=== PATIENT | male | born 1975 | race Caucasian/White ===

== ENCOUNTER 2019-10-07 09:29 | Observation (INO) ==
[2019-10-07] MEDS ORDERED: ADENOCARD IVP STA ×2 (10:11)
--- NOTE | 2019-10-07 10:12 | ED.PDOC ---
General ED Provider: Dr. KHURRAM DEGROOT Chief Complaint: Nausea/Vomiting Stated Complaint: Awakened with feeling ill and nauseated. Has happened before but never has been evaluated during an event. Time Seen by Physician: 09:50 Mode of Arrival: Walk-In Information Source: Patient Exam Limitations: No limitations Nursing and Triage Documentation Reviewed and Agree: Yes Does patient meet sepsis criteria?: No System Inflammatory Response Syndrome: Not Applicable Sepsis Protocol: For patient's 13 years and over: Temp is 96.8 and below OR 101 and greater Pulse >90 BPM Resp >20/minute Acutely Altered Mental Status Are patient's symptoms suggestive of a new infection, such as: -Pneumonia -Skin, Soft Tissue -Endocarditis -UTI -Bone, Joint Infection -Implantable Device -Acute Abdominal Infection -Wound Infection -Meningitis -Blood Stream Catheter Infection -Unknown Cardiovascular Complaint Exam Palpitations Complaint/Exam Onset/Duration: This AM Symptoms Are: Still present Timing: Constant Initial Severity: Moderate Current Severity: Mild Character: Reports Pounding (initially) Alleviating: Reports None Associated Signs and Symptoms: Reports Lightheadedness, Dizziness, Chest pain, Shortness of breath and Nausea Related History: Similar episode Related Surgical History: Reports None Cardiac Risk Factors: Reports None Pulmonary Embolism Risk Factors: Reports None Atrial Fibrillation Risk Factors: Reports None Thyroid Exam: Normal Differential Diagnoses: AV Block, Mitral Valve Prolapse, CAD and Paroxysmal SVT Quality Indicators for AMI: EKG in 10min. Review of Systems Review Of Systems Constitutional: Reports No symptoms Eyes: Reports No symptoms Ears, Nose, Mouth, Throat: Reports No symptoms Respiratory: Reports No symptoms Cardiac: Reports No symptoms GI: Reports No symptoms : Reports No symptoms Musculoskeletal: Reports No symptoms Skin: Reports No symptoms Neurological: Reports No symptoms Endocrine: Reports No symptoms Hematologic/Lymphatic: Reports No symptoms All Other Systems: Reviewed and Negative [facility] Medical History (Updated 10/07/19 @ 16:13 by MELISSA GOODSON RN) Temporary low platelet count Family History (Updated 10/07/19 @ 16:13 by MELISSA GOODSON RN) FATHER Diabetes Mother Hypertension FATHER Prostate CA Social History Smoking and tobacco status: Current every day smoker Substance use type: marijuana Physical Exam Physical Exam Appearance: Reports Ill-appearing and Obese Ill-appearing: Mild Pain Distress: None Eyes: Reports NATANAEL, EOMI and Conjunctiva clear ENT: Reports Ears normal, Nose normal and Oropharynx normal Neck: Supple (No JVD) Respiratory: Reports Airway patent, Breath sounds clear, Breath sounds equal and Respirations nonlabored Cardiovascular: Reports RRR, Pulses normal, No rub and No murmur GI/: Reports Soft, Nontender, No masses, Bowel sounds normal and No Organomegaly Musculoskeletal: Reports Normal strength, ROM intact, No edema and No calf tenderness Skin: Reports Warm, Dry and Normal color Neurological: Reports Sensation intact, Motor intact, Reflexes intact, Cranial nerves intact, Alert and Oriented Psychiatric: Reports Affect appropriate and Mood appropriate Interpretation Radiology Interpretation Exam Interpreted: Portable CXR (Mild enlargement of the cardiac silhouette with increased pulmonary vascularity. Question minimal interstitial edema.) EKG Interpretation Time of EKG #1: 09:50 Rate: Tachy Rhythm: Sinus Ectopy: None ST Segment: Normal Interpretation: SVT Time of EKG #2: 10:15 Rate: Normal Rhythm: Sinus Ectopy: None Sabin: Left ST Segment: Normal EKG Interpretation: NSR Physician Notification Case Discussed Physician Notified: Dr Roblero-consult Time of Notification: 15:00 Critical Care Note Critical Care Note Total Time (mins): 60 Course Course Hematology/Chemistry: 10/07/19 09:55 10/07/19 09:55 Orders, Labs, Meds: Lab Review 10/07/19 10/07/19 10/07/19 09:55 09:55 09:55 WBC 6.86 RBC 5.50 Hgb 16.1 Hct 48.1 MCV 87.5 MCH 29.3 MCHC 33.5 RDW Coeff of Adrian 14.6 Plt Count 44 L Immature Gran % (Auto) 0.4 Neut % (Auto) 76.6 H Lymph % (Auto) 14.0 [place] % (Auto) 7.6 Eos % (Auto) 1.0 Baso % (Auto) 0.4 Neut # (Auto) 5.3 Lymph # (Auto) 1.0 [place] # (Auto) 0.5 Eos # (Auto) 0.1 Baso # (Auto) 0.0 Immature Gran # (Auto) 0.0 PT INR APTT Sodium 139.8 Potassium 2.95 L Chloride 100.3 Carbon Dioxide 29.8 Anion Gap 12.65 BUN 16.5 Creatinine 1.57 H Estimated GFR (MDRD) 48.00 BUN/Creatinine Ratio 10.50 Glucose 109.0 H Calcium 10.29 H Total Bilirubin 0.68 AST 33.0 ALT 21.3 Alkaline Phosphatase 79.0 Total Creatine Kinase 208.7 H CK-MB (CK-2) 3.030 H CK-MB (CK-2) % 1.4500 Troponin I 0.069 Total Protein 7.52 Albumin 4.45 Globulin 3.07 Albumin/Globulin Ratio 1.44 Triglycerides Cholesterol LDL Cholesterol, Calc VLDL Cholesterol HDL Cholesterol Cholesterol/HDL Ratio TSH Free T4 D-Dimer 308.84 Urine Opiates Screen Ur Oxycodone Screen Urine Methadone Screen Ur Propoxyphene Screen Ur Barbiturates Screen U Tricyclic Antidepress Ur Phencyclidine Scrn Ur Amphetamine Screen U Methamphetamines Scrn U Benzodiazepines Scrn Urine Cocaine Screen U Cannabinoids Screen 10/07/19 10/07/19 10/07/19 09:55 09:55 09:55 WBC RBC Hgb Hct MCV MCH MCHC RDW Coeff of Adrian Plt Count Immature Gran % (Auto) Neut % (Auto) Lymph % (Auto) [place] % (Auto) Eos % (Auto) Baso % (Auto) Neut # (Auto) Lymph # (Auto) [place] # (Auto) Eos # (Auto) Baso # (Auto) Immature Gran # (Auto) PT 9.5 INR 0.97 APTT 27.7 Sodium Potassium Chloride Carbon Dioxide Anion Gap BUN Creatinine Estimated GFR (MDRD) BUN/Creatinine Ratio Glucose Calcium Total Bilirubin AST ALT Alkaline Phosphatase Total Creatine Kinase CK-MB (CK-2) CK-MB (CK-2) % Troponin I Total Protein Albumin Globulin Albumin/Globulin Ratio Triglycerides 191.1 H Cholesterol 196.9 LDL Cholesterol, Calc 123 VLDL Cholesterol 38 H HDL Cholesterol 35.2 Cholesterol/HDL Ratio 5.6 TSH 3.260 Free T4 1.11 D-Dimer Urine Opiates Screen Ur Oxycodone Screen Urine Methadone Screen Ur Propoxyphene Screen Ur Barbiturates Screen U Tricyclic Antidepress Ur Phencyclidine Scrn Ur Amphetamine Screen U Methamphetamines Scrn U Benzodiazepines Scrn Urine Cocaine Screen U Cannabinoids Screen 10/07/19 10:50 WBC RBC Hgb Hct MCV MCH MCHC RDW Coeff of Adrian Plt Count Immature Gran % (Auto) Neut % (Auto) Lymph % (Auto) [place] % (Auto) Eos % (Auto) Baso % (Auto) Neut # (Auto) Lymph # (Auto) [place] # (Auto) Eos # (Auto) Baso # (Auto) Immature Gran # (Auto) PT INR APTT Sodium Potassium Chloride Carbon Dioxide Anion Gap BUN Creatinine Estimated GFR (MDRD) BUN/Creatinine Ratio Glucose Calcium Total Bilirubin AST ALT Alkaline Phosphatase Total Creatine Kinase CK-MB (CK-2) CK-MB (CK-2) % Troponin I Total Protein Albumin Globulin Albumin/Globulin Ratio Triglycerides Cholesterol LDL Cholesterol, Calc VLDL Cholesterol HDL Cholesterol Cholesterol/HDL Ratio TSH Free T4 D-Dimer Urine Opiates Screen Negative Ur Oxycodone Screen Negative Urine Methadone Screen Negative Ur Propoxyphene Screen Negative Ur Barbiturates Screen Negative U Tricyclic Antidepress Negative Ur Phencyclidine Scrn Negative Ur Amphetamine Screen Negative U Methamphetamines Scrn Negative U Benzodiazepines Scrn Negative Urine Cocaine Screen Negative U Cannabinoids Screen Negative Orders Category Date Time Status EKG-(ED ONLY) Stat CARDIO 10/07/19 10:17 Completed EKG-(ED ONLY) Stat CARDIO 10/07/19 13:33 Completed CBC W/ AUTO DIFF Stat LAB 10/07/19 09:55 Completed CMP [COMPREHENSIVE METABOLIC PANEL] Stat LAB 10/07/19 09:55 Completed CPK [CREATINE KINASE] Stat LAB 10/07/19 09:55 Completed D-DIMER Stat LAB 10/07/19 09:55 Completed PARTIAL THROMBOPLASTIN TIME Stat LAB 10/07/19 09:55 Completed PT WITH INR Stat LAB 10/07/19 09:55 Completed TROPONIN I Stat LAB 10/07/19 09:55 Completed URINE DRUG SCREEN (RAPID FOR ED) [DRUG SCREEN, URINE, LAB 10/07/19 10:50 Comp leted RAPID] Stat Adenosine [Adenocard] MEDS 10/07/19 10:11 Discontinued 12 mg IVP ONCE STA Adenosine [Adenocard] MEDS 10/07/19 10:11 Discontinued 6 mg IVP ONCE STA Carvedilol [Coreg] MEDS 10/07/19 17:00 Discontinued 3.125 mg PO BIDWM Carvedilol [Coreg] MEDS 10/07/19 13:34 Discontinued 3.125 mg PO NOW ONE Diltiazem HCl [Cardizem] MEDS 10/07/19 15:30 Active 90 mg PO BID Lisinopril/Hydrochlorothiazide [Zestoretic 20-12.5 mg MEDS 10/07/19 14:53 Discontinued Tab] 1 tab PO ONCE STA Potassium Chloride [K-Dur] MEDS 10/07/19 12:12 Discontinued 20 meq PO ONCE STA Potassium Chloride [Potassium Chloride 20 Meq/100 ml MEDS 10/07/19 12:11 Discontinued Premix] 20 meq in 100 ml IV ONCE CHEST, 1V AP ONLY Stat RADS 10/07/19 10:18 Completed Medications Generic Name Dose Route Start Last Admin Trade Name Estrellita PRN Reason Stop Dose Admin Acetaminophen 650 mg 10/07/19 15:19 Tylenol PO Q4H PRN Analgesia Alprazolam 0.5 mg 10/07/19 21:00 Xanax PO BEDTIME CALLY Diltiazem HCl 90 mg 10/07/19 15:30 10/07/19 15:41 Cardizem PO 90 mg BID CALLY Administration Enoxaparin Sodium 40 mg 10/08/19 09:00 Lovenox SUBCUT DAILY CALLY Hydrochlorothiazide 50 mg 10/08/19 09:00 Hydrochlorothiazide PO DAILY CALLY Sodium Chloride 1,000 mls @ 83 mls/hr 10/07/19 16:30 10/07/19 16:30 Sodium Chloride IV 83 mls/hr .Q12H3M CALLY Administration Lisinopril 40 mg 10/08/19 09:00 Zestril PO DAILY CALLY Nicotine 1 patch 10/07/19 16:30 10/07/19 17:09 Nicoderm 14 Mg TD 1 patch DAILY CALLY Administration Ondansetron HCl 4 mg 10/07/19 15:19 Zofran 4 Mg/2 Ml IVP Q6H PRN Nausea / Vomiting Potassium Chloride 20 meq 10/07/19 16:30 10/07/19 17:09 K-Dur PO 10/07/19 22:30 20 meq Q2H CALLY Administration Potassium Chloride 20 meq 10/08/19 08:00 K-Dur PO TIDWM CALLY Discontinued Medications Generic Name Dose Route Start Last Admin Trade Name Estrellita PRN Reason Stop Dose Admin Adenosine 6 mg 10/07/19 10:11 10/07/19 09:47 Adenocard IVP 10/07/19 10:12 6 mg ONCE STA Administration Adenosine 12 mg 10/07/19 10:11 10/07/19 09:50 Adenocard IVP 10/07/19 10:12 12 mg ONCE STA Administration Carvedilol 3.125 mg 10/07/19 17:00 Coreg PO BIDWM CALLY Carvedilol 3.125 mg 10/07/19 13:34 10/07/19 14:05 Coreg PO 10/07/19 13:35 3.125 mg NOW ONE Administration Lisinopril/HCTZ 1 tab 10/07/19 14:53 10/07/19 15:05 Zestoretic 20-12.5 Mg Tab PO 10/07/19 14:54 1 tab ONCE STA Administration Potassium Chloride 20 meq in 100 mls @ 50 mls/hr 10/07/19 12:11 10/07/19 12:43 Potassium Chloride 20 Meq/100 Ml Premix IV 10/07/19 14:10 50 mls/hr ONCE STA Administration Potassium Chloride 20 meq 10/07/19 12:12 10/07/19 12:40 K-Dur PO 10/07/19 12:13 20 meq ONCE STA Administration Vital Signs: Temp Pulse Resp BP Pulse Ox 10/07/19 10:36 90 16 126/84 10/07/19 09:31 97.6 F 188 H 26 H 111/76 97 KERVIN Risk Score KERVIN Risk Score: Risk Score Odds of by 30D 0 0.1 (0.1-0.2) 1 0.3 (0.2-0.3) 2 0.4 (0.3-0.5) 3 0.7 (0.6-0.9) 4 1.2 (1.0-1.5) 5 2.2 (1.9-2.6) 6 3.0 (2.5-3.6) 7 4.8 (3.8-6.1) Discharge Plan Discharge Patient Disposition: PLACED OBSERVATION Discharge Problem: Paroxysmal supraventricular tachycardia, Hypertension, Nausea, Vomiting ED Provider: KHURRAM DEGROOT Condition: Good Discharge Date/Time: 10/07/19 15:33 Additional Information: Spoke with Dr Roblero who completed Echo Revealed LVH. good ejection fraction
[2019-10-07 10:41] LABS: HEMATOCRIT 48.1 % (42.0-52.0)
--- NOTE | 2019-10-07 10:41 | DI ---
EXAM: Chest, single view COMPARISON: None available. HISTORY: Tachycardia. FINDINGS: Single underpenetrated semi upright chest radiograph with lordotic positioning with overal l limited anatomic detail. Mild enlargement cardiac silhouette with increased pulmonary vascularity. Prominence of the interstitium and minimal interstitial edema is not excluded. No focal airspace c onsolidation, pleural effusion or pneumothorax. IMPRESSION: 1. Technically limited radiograph as described. Further assessment with PA and lateral views of the chest should be considered. 2. Mild enlargement of the cardiac silhouette with increased pulmonary vascularity. Question minima l interstitial edema.
[2019-10-07] MEDS ORDERED: POTASSIUM CHLORIDE 20 MEQ/100 ML PREMIX 20 MEQ/100 ML BAG IV STA (12:11)
[2019-10-07] MEDS ORDERED: K-DUR PO STA (12:12)
[2019-10-07] MEDS ORDERED: COREG PO ONE (13:34)
[2019-10-07] MEDS ORDERED: ZESTORETIC 20-12.5 MG TAB PO STA (14:53)
[2019-10-07] MEDS ORDERED: ZOFRAN 4 MG/2 ML IVP PRN (15:19)
[2019-10-07] MEDS ORDERED: TYLENOL PO PRN (15:19)
[2019-10-07] MEDS: CARDIZEM PO SCH ×2 (15:41→19:59)
[2019-10-07 16:08] VITALS: BMI 47.4
[2019-10-07] MEDS: SODIUM CHLORIDE 1,000 ML IV SCH (16:30)
[2019-10-07] MEDS ORDERED: COREG PO SCH (17:00)
[2019-10-07] MEDS: K-DUR PO SCH ×4 (17:09→23:16)
[2019-10-07] MEDS: NICODERM 14 MG TD SCH (17:09)
--- NOTE | 2019-10-07 19:34 | PCM ---
Allergies Allergies Allergy/AdvReac Type Severity Reaction Status Date / Time No Known Allergies Allergy Unverified 10/07/19 09:47 PFSH Medical History Temporary low platelet count Family History (Updated 10/07/19 @ 16:13 by MELISSA GOODSON RN) FATHER Diabetes Mother Hypertension FATHER Prostate CA Social History Smoking and tobacco status: Current every day smoker Substance use type: marijuana Medications Medications: Medications Generic Name Dose Route Start Last Admin Trade Name Freq PRN Reason Stop Dose Admin Acetaminophen 650 mg 10/07/19 15:19 Tylenol PO Q4H PRN Analgesia Alprazolam 0.5 mg 10/07/19 21:00 Xanax PO BEDTIME CALLY Diltiazem HCl 90 mg 10/07/19 15:30 10/07/19 15:41 Cardizem PO 90 mg BID CALLY Administration Enoxaparin Sodium 40 mg 10/08/19 09:00 Lovenox SUBCUT DAILY CALLY Hydrochlorothiazide 50 mg 10/08/19 09:00 Hydrochlorothiazide PO DAILY CALLY Sodium Chloride 1,000 mls @ 83 mls/hr 10/07/19 16:30 10/07/19 16:30 Sodium Chloride IV 83 mls/hr .Q12H3M CALLY Administration Lisinopril 40 mg 10/08/19 09:00 Zestril PO DAILY CALLY Nicotine 1 patch 10/07/19 16:30 10/07/19 17:09 Nicoderm 14 Mg TD 1 patch DAILY CALLY Administration Ondansetron HCl 4 mg 10/07/19 15:19 Zofran 4 Mg/2 Ml IVP Q6H PRN Nausea / Vomiting Potassium Chloride 20 meq 10/07/19 16:30 10/07/19 18:57 K-Dur PO 10/07/19 22:30 20 meq Q2H CALLY Administration Potassium Chloride 20 meq 10/08/19 08:00 K-Dur PO TIDWM CALLY Body Composition Height: 5 ft 5 in Weight: 285 lb Body Mass Index (BMI): 47.4 Vital Signs Temperature: 98.1 F Pulse Rate: 68 Respiratory Rate: 16 Blood Pressure: 122/72 O2 Sat by Pulse Oximetry: 96 Lab/Tests/Diagnostic Imaging Lab/Tests/Diagnostic Imaging: Lab Review 10/07/19 10/07/19 10/07/19 09:55 09:55 09:55 WBC 6.86 RBC 5.50 Hgb 16.1 Hct 48.1 MCV 87.5 MCH 29.3 MCHC 33.5 RDW Coeff of Adrian 14.6 Plt Count 44 L Immature Gran % (Auto) 0.4 Neut % (Auto) 76.6 H Lymph % (Auto) 14.0 [place] % (Auto) 7.6 Eos % (Auto) 1.0 Baso % (Auto) 0.4 Neut # (Auto) 5.3 Lymph # (Auto) 1.0 [place] # (Auto) 0.5 Eos # (Auto) 0.1 Baso # (Auto) 0.0 Immature Gran # (Auto) 0.0 PT INR APTT Sodium 139.8 Potassium 2.95 L Chloride 100.3 Carbon Dioxide 29.8 Anion Gap 12.65 BUN 16.5 Creatinine 1.57 H Estimated GFR (MDRD) 48.00 BUN/Creatinine Ratio 10.50 Glucose 109.0 H Calcium 10.29 H Total Bilirubin 0.68 AST 33.0 ALT 21.3 Alkaline Phosphatase 79.0 Total Creatine Kinase 208.7 H CK-MB (CK-2) 3.030 H CK-MB (CK-2) % 1.4500 Troponin I 0.069 Total Protein 7.52 Albumin 4.45 Globulin 3.07 Albumin/Globulin Ratio 1.44 Triglycerides Cholesterol LDL Cholesterol, Calc VLDL Cholesterol HDL Cholesterol Cholesterol/HDL Ratio TSH Free T4 D-Dimer 308.84 Urine Opiates Screen Ur Oxycodone Screen Urine Methadone Screen Ur Propoxyphene Screen Ur Barbiturates Screen U Tricyclic Antidepress Ur Phencyclidine Scrn Ur Amphetamine Screen U Methamphetamines Scrn U Benzodiazepines Scrn Urine Cocaine Screen U Cannabinoids Screen 10/07/19 10/07/19 10/07/19 09:55 09:55 09:55 WBC RBC Hgb Hct MCV MCH MCHC RDW Coeff of Adrian Plt Count Immature Gran % (Auto) Neut % (Auto) Lymph % (Auto) [place] % (Auto) Eos % (Auto) Baso % (Auto) Neut # (Auto) Lymph # (Auto) [place] # (Auto) Eos # (Auto) Baso # (Auto) Immature Gran # (Auto) PT 9.5 INR 0.97 APTT 27.7 Sodium Potassium Chloride Carbon Dioxide Anion Gap BUN Creatinine Estimated GFR (MDRD) BUN/Creatinine Ratio Glucose Calcium Total Bilirubin AST ALT Alkaline Phosphatase Total Creatine Kinase CK-MB (CK-2) CK-MB (CK-2) % Troponin I Total Protein Albumin Globulin Albumin/Globulin Ratio Triglycerides 191.1 H Cholesterol 196.9 LDL Cholesterol, Calc 123 VLDL Cholesterol 38 H HDL Cholesterol 35.2 Cholesterol/HDL Ratio 5.6 TSH 3.260 Free T4 1.11 D-Dimer Urine Opiates Screen Ur Oxycodone Screen Urine Methadone Screen Ur Propoxyphene Screen Ur Barbiturates Screen U Tricyclic Antidepress Ur Phencyclidine Scrn Ur Amphetamine Screen U Methamphetamines Scrn U Benzodiazepines Scrn Urine Cocaine Screen U Cannabinoids Screen 10/07/19 10:50 WBC RBC Hgb Hct MCV MCH MCHC RDW Coeff of Adrian Plt Count Immature Gran % (Auto) Neut % (Auto) Lymph % (Auto) [place] % (Auto) Eos % (Auto) Baso % (Auto) Neut # (Auto) Lymph # (Auto) [place] # (Auto) Eos # (Auto) Baso # (Auto) Immature Gran # (Auto) PT INR APTT Sodium Potassium Chloride Carbon Dioxide Anion Gap BUN Creatinine Estimated GFR (MDRD) BUN/Creatinine Ratio Glucose Calcium Total Bilirubin AST ALT Alkaline Phosphatase Total Creatine Kinase CK-MB (CK-2) CK-MB (CK-2) % Troponin I Total Protein Albumin Globulin Albumin/Globulin Ratio Triglycerides Cholesterol LDL Cholesterol, Calc VLDL Cholesterol HDL Cholesterol Cholesterol/HDL Ratio TSH Free T4 D-Dimer Urine Opiates Screen Negative Ur Oxycodone Screen Negative Urine Methadone Screen Negative Ur Propoxyphene Screen Negative Ur Barbiturates Screen Negative U Tricyclic Antidepress Negative Ur Phencyclidine Scrn Negative Ur Amphetamine Screen Negative U Methamphetamines Scrn Negative U Benzodiazepines Scrn Negative Urine Cocaine Screen Negative U Cannabinoids Screen Negative Orders Category Date Time Status PLACE PATIENT OBSERVATION .TO MEDSURG (MONITORED BED ADMISSION 10/07/19 15:31 Active ) ECHOCARDIOGRAM 2D-M MODE Routine CARDIO 10/07/19 16:06 Completed EKG-(ED ONLY) Stat CARDIO 10/07/19 10:17 Completed EKG-(ED ONLY) Stat CARDIO 10/07/19 13:33 Completed ACTIVITY .BR with BRP CARE 10/07/19 15:19 Active BLOOD GLUCOSE MONITORING 0630,1100,1700,2100 CARE 07/11/20 15:20 Active INTAKE & OUTPUT Q8HR CARE 10/07/19 15:19 Active NOTIFY PHYSICIAN OF CONSULT ONCE CARE 10/07/19 15:22 Active NPO REMINDER: LAB TEST ONCE CARE 10/07/19 16:02 Completed TELEMETRY MONITORING TELE CARE 10/07/19 15:32 Active VITAL SIGNS Q8HR CARE 10/07/19 15:19 Completed PHYSICIAN CONSULTATION [CONS] Stat CONSULTS 10/07/19 15:22 Ordered REGULAR DIET DIETARY 10/07/19 Dinner Ordered CBC W/ AUTO DIFF DAILY@0600 LAB 10/08/19 06:00 Ordered CBC W/ AUTO DIFF DAILY@0600 LAB 10/09/19 06:00 Ordered CBC W/ AUTO DIFF Stat LAB 10/07/19 09:55 Completed CMP [COMPREHENSIVE METABOLIC PANEL] Stat LAB 10/07/19 09:55 Completed COMPREHENSIVE METABOLIC PANEL DAILY@0600 LAB 10/08/19 06:00 Ordered COMPREHENSIVE METABOLIC PANEL DAILY@0600 LAB 10/09/19 06:00 Ordered CPK [CREATINE KINASE] Stat LAB 10/07/19 09:55 Completed D-DIMER Stat LAB 10/07/19 09:55 Completed FREE T4 (FREE THYROXINE) Routine LAB 10/07/19 09:55 Completed LIPID PANEL Routine LAB 10/07/19 09:55 Completed PARTIAL THROMBOPLASTIN TIME Stat LAB 10/07/19 09:55 Completed PT WITH INR Stat LAB 10/07/19 09:55 Completed THYROID STIMULATING HORMONE Routine LAB 10/07/19 09:55 Completed TROPONIN I Q8H LAB 10/07/19 21:30 Ordered TROPONIN I Q8H LAB 10/08/19 05:30 Ordered TROPONIN I Stat LAB 10/07/19 09:55 Completed URINE DRUG SCREEN (RAPID FOR ED) [DRUG SCREEN, URINE, LAB 10/07/19 10:50 Completed RAPID] Stat Acetaminophen [Tylenol] MEDS 10/07/19 15:19 Active 650 mg PO Q4H PRN Adenosine [Adenocard] MEDS 10/07/19 10:11 Discontinued 12 mg IVP ONCE STA Adenosine [Adenocard] MEDS 10/07/19 10:11 Discontinued 6 mg IVP ONCE STA Alprazolam [Xanax] MEDS 10/07/19 21:00 Active 0.5 mg PO BEDTIME Carvedilol [Coreg] MEDS 10/07/19 17:00 Discontinued 3.125 mg PO BIDWM Carvedilol [Coreg] MEDS 10/07/19 13:34 Discontinued 3.125 mg PO NOW ONE Diltiazem HCl [Cardizem] MEDS 10/07/19 15:30 Active 90 mg PO BID Enoxaparin Sodium [Lovenox] MEDS 10/08/19 09:00 Active 40 mg SUBCUT DAILY Hydrochlorothiazide MEDS 10/08/19 09:00 Active 50 mg PO DAILY Lisinopril [Zestril] MEDS 10/08/19 09:00 Active 40 mg PO DAILY Lisinopril/Hydrochlorothiazide [Zestoretic 20-12.5 mg MEDS 10/07/19 14:53 Discontinued Tab] 1 tab PO ONCE STA Nicotine 14 mg [Nicoderm 14 mg] MEDS 10/07/19 16:30 Active 1 patch TD DAILY Ondansetron HCl/Pf [Zofran 4 mg/2 ml] MEDS 10/07/19 15:19 Active 4 mg IVP Q6H PRN Potassium Chloride [K-Dur] MEDS 10/07/19 12:12 Discontinued 20 meq PO ONCE STA Potassium Chloride [K-Dur] MEDS 10/07/19 16:30 Active 20 meq PO Q2H Potassium Chloride [K-Dur] MEDS 10/08/19 08:00 Active 20 meq PO TIDWM Potassium Chloride [Potassium Chloride 20 Meq/100 ml MEDS 10/07/19 12:11 Discontinued Premix] 20 meq in 100 ml IV ONCE Sodium Chloride 0.9% [Sodium Chloride] 1,000 ml MEDS 10/07/19 16:30 Active IV 83 mls/hr RESUSCITATION STATUS Routine OTHERS 10/07/19 15:19 Completed RESUSCITATION STATUS Routine OTHERS 10/07/19 16:09 Ordered CHEST, 1V AP ONLY Stat RADS 10/07/19 10:18 Completed Medications Generic Name Dose Route Start Last Admin Trade Name Freq PRN Reason Stop Dose Admin Acetaminophen 650 mg 10/07/19 15:19 Tylenol PO Q4H PRN Analgesia Alprazolam 0.5 mg 10/07/19 21:00 Xanax PO BEDTIME CALLY Diltiazem HCl 90 mg 10/07/19 15:30 10/07/19 15:41 Cardizem PO 90 mg BID CALLY Administration Enoxaparin Sodium 40 mg 10/08/19 09:00 Lovenox SUBCUT DAILY [facility] Hydrochlorothiazide 50 mg 10/08/19 09:00 Hydrochlorothiazide PO DAILY CALLY Sodium Chloride 1,000 mls @ 83 mls/hr 10/07/19 16:30 10/07/19 16:30 Sodium Chloride IV 83 mls/hr .Q12H3M CALLY Administration Lisinopril 40 mg 10/08/19 09:00 Zestril PO DAILY CALLY Nicotine 1 patch 10/07/19 16:30 10/07/19 17:09 Nicoderm 14 Mg TD 1 patch DAILY CALLY Administration Ondansetron HCl 4 mg 10/07/19 15:19 Zofran 4 Mg/2 Ml IVP Q6H PRN Nausea / Vomiting Potassium Chloride 20 meq 10/07/19 16:30 10/07/19 18:57 K-Dur PO 10/07/19 22:30 20 meq Q2H CALLY Administration Potassium Chloride 20 meq 10/08/19 08:00 K-Dur PO TIDWM CALLY Discontinued Medications Generic Name Dose Route Start Last Admin Trade Name Freq PRN Reason Stop Dose Admin Adenosine 6 mg 10/07/19 10:11 10/07/19 09:47 Adenocard IVP 10/07/19 10:12 6 mg ONCE STA Administration Adenosine 12 mg 10/07/19 10:11 10/07/19 09:50 Adenocard IVP 10/07/19 10:12 12 mg ONCE STA Administration Carvedilol 3.125 mg 10/07/19 17:00 Coreg PO BIDWM CALLY Carvedilol 3.125 mg 10/07/19 13:34 10/07/19 14:05 Coreg PO 10/07/19 13:35 3.125 mg NOW ONE Administration Lisinopril/HCTZ 1 tab 10/07/19 14:53 10/07/19 15:05 Zestoretic 20-12.5 Mg Tab PO 10/07/19 14:54 1 tab ONCE STA Administration Potassium Chloride 20 meq in 100 mls @ 50 mls/hr 10/07/19 12:11 10/07/19 12:43 Potassium Chloride 20 Meq/100 Ml Premix IV 10/07/19 14:10 50 mls/hr ONCE STA Administration Potassium Chloride 20 meq 10/07/19 12:12 10/07/19 12:40 K-Dur PO 10/07/19 12:13 20 meq ONCE STA Administration Assessment (1) Paroxysmal supraventricular tachycardia: Status: Acute Code(s): I47.1 - Supraventricular tachycardia SNOMED Code(s): 76684186 (2) Hypertension: Status: Acute Code(s): I10 - Essential (primary) hypertension SNOMED Code(s): 95816861 (3) Nausea: Status: Acute Code(s): R11.0 - Nausea SNOMED Code(s): 646451332 (4) Vomiting: Status: Acute Code(s): R11.10 - Vomiting, unspecified SNOMED Code(s): 141557215
--- NOTE | 2019-10-07 19:54 | PCM ---
Chief Complaint Chief Complaint: Nausea and vomiting. History of Present Illness History of Present Illness: Came to ER from a local hotel.Evaluated and discovered was in svt, Treated with adeocard and successurlly converted. Admitted for observation, cardiology consult and treatment Review of Systems Constitutional: Denies No symptoms, Fever, Chills, Weakness, Sweats, Fatigue, Loss of appetite and Other Eyes: Denies No symptoms, Blurred vision, Double-vision, Discharge, Itching, Pain, Redness, Photophobia and Other Ears: Denies No symptoms, Pain, Bleeding, Drainage, Ringing, Hearing loss and Other Nose: Denies No symptoms, Bleeding, Congestion, Discharge and Other Throat: Denies No symptoms, Pain, Swelling, Voice change and Other Mouth: Denies No symptoms, Bleeding, Pain, Swelling and Other Respiratory: Denies No symptoms, Cough, Shortness of air, Wheeze, Hemoptysis, Pain with breathing and Other Cardiovascular: Reports Palpitations; Denies No symptoms, Chest pain, Left arm pain, Diaphoresis, PND, Orthopnea, Edema, Syncope and Other Gastrointestinal: Denies No symptoms, Abdominal pain, Nausea, Vomiting, Diarrhea, Melena, Hematemesis, Hematochezia, Dysphagia, Constipation and Other Genitourinary: Denies No symptoms, dysuria, hematuria, frequency, incontinence, flank pain, penile discharge, testicular pain, testicular swelling and other Neurological: Denies No symptoms, Headache, Dizziness, Seizure, Numbness, Weakness, Speech difficulty, Problems with walking, Tremor, Fainting and Other Musculoskeletal: Denies No symptoms, Pain, Swelling in joints and Other Skin: Denies No symptoms, Rash, Pruritus, Lacerations, Wounds, Bruising and Other Immunology: Denies No symptoms, Hives, Itching, Frequent infections, Difficulty healing and Other Hematology: Denies No symptoms, Easy bruising, Easy bleeding, Swollen glands and Other Endocrine: Denies No symptoms, Weight changes, Cold intolerance, Heat intolerance, Excessive thirst, Excessive hunger, Polyuria and Other Psychiatric: Denies No symptoms, Depression, Anxiety, Sleeplessness, Hopelessness, Suicidal, Hallucinations and Other Habits: Reports Tobacco use and Other; Denies Substance use and Alcohol use Allergies Allergies Allergy/AdvReac Type Severity Reaction Status Date / Time No Known Allergies Allergy Unverified 10/07/19 09:47 [facility] Medical History Temporary low platelet count Family History (Updated 10/07/19 @ 16:13 by MELISSA GOODSON RN) FATHER Diabetes Mother Hypertension FATHER Prostate CA Social History Smoking and tobacco status: Current every day smoker Substance use type: marijuana Medications Medications: Medications Generic Name Dose Route Start Last Admin Trade Name Freq PRN Reason Stop Dose Admin Acetaminophen 650 mg 10/07/19 15:19 Tylenol PO Q4H PRN Analgesia Alprazolam 0.5 mg 10/07/19 21:00 Xanax PO BEDTIME CALLY Diltiazem HCl 90 mg 10/07/19 15:30 10/07/19 15:41 Cardizem PO 90 mg BID CALLY Administration Enoxaparin Sodium 40 mg 10/08/19 09:00 Lovenox SUBCUT DAILY CALLY Hydrochlorothiazide 50 mg 10/08/19 09:00 Hydrochlorothiazide PO DAILY CALLY Sodium Chloride 1,000 mls @ 83 mls/hr 10/07/19 16:30 10/07/19 16:30 Sodium Chloride IV 83 mls/hr .Q12H3M CALLY Administration Lisinopril 40 mg 10/08/19 09:00 Zestril PO DAILY CALLY Nicotine 1 patch 10/07/19 16:30 10/07/19 17:09 Nicoderm 14 Mg TD 1 patch DAILY CALLY Administration Ondansetron HCl 4 mg 10/07/19 15:19 Zofran 4 Mg/2 Ml IVP Q6H PRN Nausea / Vomiting Potassium Chloride 20 meq 10/07/19 16:30 10/07/19 18:57 K-Dur PO 10/07/19 22:30 20 meq Q2H CALLY Administration Potassium Chloride 20 meq 10/08/19 08:00 K-Dur PO TIDWM CALLY Body Composition Height: 5 ft 5 in Weight: 285 lb Body Mass Index (BMI): 47.4 Vital Signs Temperature: 98.1 F Pulse Rate: 68 Respiratory Rate: 16 Blood Pressure: 122/72 O2 Sat by Pulse Oximetry: 96 Physical Examination Appearance: Reports Well-appearing and Obese Ill-appearing: None Pain Distress: None Eyes: Reports NATANAEL, EOMI, Conjunctiva clear, Right pupil size, Left pupil size and Other; Denies Conjunctiva inflammed and Conjunctiva pale ENT: Reports Ears normal, Nose normal and Oropharynx normal Neck: Supple Respiratory: Reports Airway patent, Breath sounds clear and Breath sounds equal Cardiovascular: Reports RRR, Pulses normal, No rub and No murmur GI/: Reports Soft, Nontender, No masses, Bowel sounds normal and No Organomegaly Musculoskeletal: Reports Normal strength, ROM intact, No edema and No calf tenderness Skin: Reports Warm, Dry and Normal color Neurological: Reports Sensation intact, Motor intact, Reflexes intact, Cranial nerves intact, Alert and Oriented Psychiatric: Reports Affect appropriate and Mood appropriate Lab/Tests/Diagnostic Imaging Lab/Tests/Diagnostic Imaging: Lab Review 10/07/19 10/07/19 10/07/19 09:55 09:55 09:55 WBC 6.86 RBC 5.50 Hgb 16.1 Hct 48.1 MCV 87.5 MCH 29.3 MCHC 33.5 RDW Coeff of Adrian 14.6 Plt Count 44 L Immature Gran % (Auto) 0.4 Neut % (Auto) 76.6 H Lymph % (Auto) 14.0 Boone % (Auto) 7.6 Eos % (Auto) 1.0 Baso % (Auto) 0.4 Neut # (Auto) 5.3 Lymph # (Auto) 1.0 [place] # (Auto) 0.5 Eos # (Auto) 0.1 Baso # (Auto) 0.0 Immature Gran # (Auto) 0.0 PT INR APTT Sodium 139.8 Potassium 2.95 L Chloride 100.3 Carbon Dioxide 29.8 Anion Gap 12.65 BUN 16.5 Creatinine 1.57 H Estimated GFR (MDRD) 48.00 BUN/Creatinine Ratio 10.50 Glucose 109.0 H Calcium 10.29 H Total Bilirubin 0.68 AST 33.0 ALT 21.3 Alkaline Phosphatase 79.0 Total Creatine Kinase 208.7 H CK-MB (CK-2) 3.030 H CK-MB (CK-2) % 1.4500 Troponin I 0.069 Total Protein 7.52 Albumin 4.45 Globulin 3.07 Albumin/Globulin Ratio 1.44 Triglycerides Cholesterol LDL Cholesterol, Calc VLDL Cholesterol HDL Cholesterol Cholesterol/HDL Ratio TSH Free T4 D-Dimer 308.84 Urine Opiates Screen Ur Oxycodone Screen Urine Methadone Screen Ur Propoxyphene Screen Ur Barbiturates Screen U Tricyclic Antidepress Ur Phencyclidine Scrn Ur Amphetamine Screen U Methamphetamines Scrn U Benzodiazepines Scrn Urine Cocaine Screen U Cannabinoids Screen 10/07/19 10/07/19 10/07/19 09:55 09:55 09:55 WBC RBC Hgb Hct MCV MCH MCHC RDW Coeff of Adrian Plt Count Immature Gran % (Auto) Neut % (Auto) Lymph % (Auto) Bo[place] % (Auto) Eos % (Auto) Baso % (Auto) Neut # (Auto) Lymph # (Auto) [place] # (Auto) Eos # (Auto) Baso # (Auto) Immature Gran # (Auto) PT 9.5 INR 0.97 APTT 27.7 Sodium Potassium Chloride Carbon Dioxide Anion Gap BUN Creatinine Estimated GFR (MDRD) BUN/Creatinine Ratio Glucose Calcium Total Bilirubin AST ALT Alkaline Phosphatase Total Creatine Kinase CK-MB (CK-2) CK-MB (CK-2) % Troponin I Total Protein Albumin Globulin Albumin/Globulin Ratio Triglycerides 191.1 H Cholesterol 196.9 LDL Cholesterol, Calc 123 VLDL Cholesterol 38 H HDL Cholesterol 35.2 Cholesterol/HDL Ratio 5.6 TSH 3.260 Free T4 1.11 D-Dimer Urine Opiates Screen Ur Oxycodone Screen Urine Methadone Screen Ur Propoxyphene Screen Ur Barbiturates Screen U Tricyclic Antidepress Ur Phencyclidine Scrn Ur Amphetamine Screen U Methamphetamines Scrn U Benzodiazepines Scrn Urine Cocaine Screen U Cannabinoids Screen 10/07/19 10:50 WBC RBC Hgb Hct MCV MCH MCHC RDW Coeff of Adrian Plt Count Immature Gran % (Auto) Neut % (Auto) Lymph % (Auto) [place] % (Auto) Eos % (Auto) Baso % (Auto) Neut # (Auto) Lymph # (Auto) [place] # (Auto) Eos # (Auto) Baso # (Auto) Immature Gran # (Auto) PT INR APTT Sodium Potassium Chloride Carbon Dioxide Anion Gap BUN Creatinine Estimated GFR (MDRD) BUN/Creatinine Ratio Glucose Calcium Total Bilirubin AST ALT Alkaline Phosphatase Total Creatine Kinase CK-MB (CK-2) CK-MB (CK-2) % Troponin I Total Protein Albumin Globulin Albumin/Globulin Ratio Triglycerides Cholesterol LDL Cholesterol, Calc VLDL Cholesterol HDL Cholesterol Cholesterol/HDL Ratio TSH Free T4 D-Dimer Urine Opiates Screen Negative Ur Oxycodone Screen Negative Urine Methadone Screen Negative Ur Propoxyphene Screen Negative Ur Barbiturates Screen Negative U Tricyclic Antidepress Negative Ur Phencyclidine Scrn Negative Ur Amphetamine Screen Negative U Methamphetamines Scrn Negative U Benzodiazepines Scrn Negative Urine Cocaine Screen Negative U Cannabinoids Screen Negative Orders Category Date Time Status PLACE PAT[facility] 10/07/19 15:31 Active ) ECHOCARDIOGRAM 2D-M MODE Routine CARDIO 10/07/19 16:06 Completed EKG-(ED ONLY) Stat CARDIO 10/07/19 10:17 Completed EKG-(ED ONLY) Stat CARDIO 10/07/19 13:33 Completed ACTIVITY .BR with BRP CARE 10/07/19 15:19 Active BLOOD GLUCOSE MONITORING 0630,1100,1700,2100 CARE 10/07/19 15:20 Active INTAKE & OUTPUT Q8HR CARE 10/07/19 15:19 Active NOTIFY PHYSICIAN OF CONSULT ONCE CARE 10/07/19 15:22 Active NPO REMINDER: LAB TEST ONCE CARE 10/07/19 16:02 Completed TELEMETRY MONITORING TELE CARE 10/07/19 15:32 Active VITAL SIGNS Q8HR CARE 10/07/19 15:19 Completed PHYSICIAN CONSULTATION [CONS] Stat CONSULTS 10/07/19 15:22 Ordered REGULAR DIET DIETARY 10/07/19 Dinner Ordered CBC W/ AUTO DIFF DAILY@0600 LAB 10/08/19 06:00 Ordered CBC W/ AUTO DIFF DAILY@0600 LAB 10/09/19 06:00 Ordered CBC W/ AUTO DIFF Stat LAB 10/07/19 09:55 Completed CMP [COMPREHENSIVE METABOLIC PANEL] Stat LAB 10/07/19 09:55 Completed COMPREHENSIVE METABOLIC PANEL DAILY@0600 LAB 10/08/19 06:00 Ordered COMPREHENSIVE METABOLIC PANEL DAILY@0600 LAB 10/09/19 06:00 Ordered CPK [CREATINE KINASE] Stat LAB 10/07/19 09:55 Completed D-DIMER Stat LAB 10/07/19 09:55 Completed FREE T4 (FREE THYROXINE) Routine LAB 10/07/19 09:55 Completed LIPID PANEL Routine LAB 10/07/19 09:55 Completed PARTIAL THROMBOPLASTIN TIME Stat LAB 10/07/19 09:55 Completed PT WITH INR Stat LAB 10/07/19 09:55 Completed THYROID STIMULATING HORMONE Routine LAB 10/07/19 09:55 Completed TROPONIN I Q8H LAB 10/07/19 21:30 Ordered TROPONIN I Q8H LAB 10/08/19 05:30 Ordered TROPONIN I Stat LAB 10/07/19 09:55 Completed URINE DRUG SCREEN (RAPID FOR ED) [DRUG SCREEN, URINE, LAB 10/07/19 10:50 Completed RAPID] Stat Acetaminophen [Tylenol] MEDS 10/07/19 15:19 Active 650 mg PO Q4H PRN Adenosine [Adenocard] MEDS 10/07/19 10:11 Discontinued 12 mg IVP ONCE STA Adenosine [Adenocard] MEDS 10/07/19 10:11 Discontinued 6 mg IVP ONCE STA Alprazolam [Xanax] MEDS 10/07/19 21:00 Active 0.5 mg PO BEDTIME Carvedilol [Coreg] MEDS 10/07/19 17:00 Discontinued 3.125 mg PO BIDWM Carvedilol [Coreg] MEDS 10/07/19 13:34 Discontinued 3.125 mg PO NOW ONE Diltiazem HCl [Cardizem] MEDS 10/07/19 15:30 Active 90 mg PO BID Enoxaparin Sodium [Lovenox] MEDS 10/08/19 09:00 Active 40 mg SUBCUT DAILY Hydrochlorothiazide MEDS 10/08/19 09:00 Active 50 mg PO DAILY Lisinopril [Zestril] MEDS 10/08/19 09:00 Active 40 mg PO DAILY Lisinopril/Hydrochlorothiazide [Zestoretic 20-12.5 mg MEDS 10/07/19 14:53 Discontinued Tab] 1 tab PO ONCE STA Nicotine 14 mg [Nicoderm 14 mg] MEDS 10/07/19 16:30 Active 1 patch TD DAILY Ondansetron HCl/Pf [Zofran 4 mg/2 ml] MEDS 10/07/19 15:19 Active 4 mg IVP Q6H PRN Potassium Chloride [K-Dur] MEDS 10/07/19 12:12 Discontinued 20 meq PO ONCE STA Potassium Chloride [K-Dur] MEDS 10/07/19 16:30 Active 20 meq PO Q2H Potassium Chloride [K-Dur] MEDS 10/08/19 08:00 Active 20 meq PO TIDWM Potassium Chloride [Potassium Chloride 20 Meq/100 ml MEDS 10/07/19 12:11 Discontinued Premix] 20 meq in 100 ml IV ONCE Sodium Chloride 0.9% [Sodium Chloride] 1,000 ml MEDS 10/07/19 16:30 Active IV 83 mls/hr RESUSCITATION STATUS Routine OTHERS 10/07/19 15:19 Completed RESUSCITATION STATUS Routine OTHERS 10/07/19 16:09 Ordered CHEST, 1V AP ONLY Stat RADS 10/07/19 10:18 Completed Medications Generic Name Dose Route Start Last Admin Trade Name Estrellita PRN Reason Stop Dose Admin Acetaminophen 650 mg 10/07/19 15:19 Tylenol PO Q4H PRN Analgesia Alprazolam 0.5 mg 10/07/19 21:00 Xanax PO BEDTIME CALLY Diltiazem HCl 90 mg 10/07/19 15:30 10/07/19 15:41 Cardizem PO 90 mg BID CALLY Administration Enoxaparin Sodium 40 mg 10/08/19 09:00 Lovenox SUBCUT DAILY CALLY Hydrochlorothiazide 50 mg 10/08/19 09:00 Hydrochlorothiazide PO DAILY CALLY Sodium Chloride 1,000 mls @ 83 mls/hr 10/07/19 16:30 10/07/19 16:30 Sodium Chloride IV 83 mls/hr .Q12H3M CALLY Administration Lisinopril 40 mg 10/08/19 09:00 Zestril PO DAILY CALLY Nicotine 1 patch 10/07/19 16:30 10/07/19 17:09 Nicoderm 14 Mg TD 1 patch DAILY CALLY Administration Ondansetron HCl 4 mg 10/07/19 15:19 Zofran 4 Mg/2 Ml IVP Q6H PRN Nausea / Vomiting Potassium Chloride 20 meq 10/07/19 16:30 10/07/19 18:57 K-Dur PO 10/07/19 22:30 20 meq Q2H CALLY Administration Potassium Chloride 20 meq 10/08/19 08:00 K-Dur PO TIDWM CALLY Discontinued Medications Generic Name Dose Route Start Last Admin Trade Name Estrellita PRN Reason Stop Dose Admin Adenosine 6 mg 10/07/19 10:11 10/07/19 09:47 Adenocard IVP 10/07/19 10:12 6 mg ONCE STA Administration Adenosine 12 mg 10/07/19 10:11 10/07/19 09:50 Adenocard IVP 10/07/19 10:12 12 mg ONCE STA Administration Carvedilol 3.125 mg 10/07/19 17:00 Coreg PO BIDWM CALLY Carvedilol 3.125 mg 10/07/19 13:34 10/07/19 14:05 Coreg PO 10/07/19 13:35 3.125 mg NOW ONE Administration Lisinopril/HCTZ 1 tab 10/07/19 14:53 10/07/19 15:05 Zestoretic 20-12.5 Mg Tab PO 10/07/19 14:54 1 tab ONCE STA Administration Potassium Chloride 20 meq in 100 mls @ 50 mls/hr 10/07/19 12:11 10/07/19 12:43 Potassium Chloride 20 Meq/100 Ml Premix IV 10/07/19 14:10 50 mls/hr ONCE STA Administration Potassium Chloride 20 meq 10/07/19 12:12 10/07/19 12:40 K-Dur PO 10/07/19 12:13 20 meq ONCE STA Administration Assessment (1) Paroxysmal supraventricular tachycardia: Status: Acute Code(s): I47.1 - Supraventricular tachycardia SNOMED Code(s): 89249416 (2) Hypertension: Status: Acute Code(s): I10 - Essential (primary) hypertension SNOMED Code(s): 11967775 (3) Nausea: Status: Acute Code(s): R11.0 - Nausea SNOMED Code(s): 323276940 (4) Vomiting: Status: Acute Code(s): R11.10 - Vomiting, unspecified SNOMED Code(s): 643586620 (5) LVH (left ventricular hypertrophy) due to hypertensive disease: Status: Acute Code(s): I11.9 - Hypertensive heart disease without heart failure SNOMED Code(s): 288682603 Plan Plan: Recheck lab, control of hypertension, Further evaluation ofHematological status-platelet count Monitor Cardiac rhythm See Clinical Neuropsychologist in home area or [facility]
[2019-10-07] MEDS ORDERED: XANAX PO SCH (21:00)
[2019-10-07] MEDS ORDERED: ASPIRIN CHEWABLE PO STA (22:14)
[2019-10-08] MEDS ORDERED: LOVENOX SUBCUT STA (00:33)
--- NOTE | 2019-10-08 01:56 | PCM.PROG ---
S: Floor RN calls ED with Report of evening Troponin being elevated. Reports patient having no symptoms O : EKG - No acute changes Troponin 7, CK-MB 27 A: asymptomatic elevation of troponin and CK-MB with no new EKG changes P: Called cardiology - Larissa. He came in , reviewed EKG and no acute changes with EKG noted. He interviewed patient. I discussed calling an [facility] hospital with skilled labor capabilities. The patient agreed to that but said he may not agree to transfer. spoke with patient and felt that the elevationn was due to the prior SVT and he felt the patient could be followed here. I spoke to at who accepted the patient in transfer and had the center call us with a bed assignment. His plan was to folow enzymes and then consider a stress test. The patient refused transfer. With nursing present he was given the risk / benefit in a calm manner. Benefit was being at a facility capable of providing additional studies and cardiac cath. Also , transfer in an emergency situation can be delayed. Risk is delay of care, failure to diagnose, disability, and . The patient voiced understanding and again was adamant about [facility] I called and he recommended lovenox 1mg / kg subq along with the 324 mg asa I ordered earlier. will see the patient in the morning. Ordered was a magnesium, chem 8, and repeat enzymes in 3 hrs. Patient signed a refusal of transfer.
--- NOTE | 2019-10-08 02:14 | PCM.PROG ---
S: no symptoms reported O : trop down some at 6.9, ck-mb down some 25, K3.49 A : elevated cardiac enzymes following svt Normal echo earlier today as previously reported by Dr Roblero P : Patient refused ED physician requested transfer. Follow repeat enzymes in 3 hrs continue IV NS / telemetry Dr Roblero to see pt in the AM
[2019-10-08] MEDS ORDERED: POTASSIUM CHLORIDE 10 MEQ/100 ML PREMIX 10 MEQ/100 ML BAG IV STA (05:14)
[2019-10-08] MEDS: SODIUM CHLORIDE 1,000 ML IV SCH (06:18)
[2019-10-08 06:38] LABS: HEMATOCRIT 44.6 % (42.0-52.0)
--- NOTE | 2019-10-08 07:12 | PCM.PROG ---
S : no change per RN O : Trop trending down K was 3.4 - added additional 10MeQ IV over an hour A :SVT converted with two doses adenosine - prior hx of SVT unexpected finding of elevated troponin and ck mb with no symptoms and no acute findings on EKG per family assessment worker Normal echo yesterday hypokalemia P : Pt declined transfer to higher level of care Morning labs pending Morning report to Dr Mcarthur Cardiology to see this
[2019-10-08] MEDS: K-DUR PO SCH ×3 (08:08→11:59)
[2019-10-08] MEDS: CARDIZEM PO SCH (08:10)
[2019-10-08] MEDS: NICODERM 14 MG TD SCH (08:15)
[2019-10-08] MEDS ORDERED: ZESTRIL PO SCH (09:00)
[2019-10-08] MEDS ORDERED: HYDROCHLOROTHIAZIDE PO SCH (09:00)
[2019-10-08] MEDS ORDERED: LOVENOX SUBCUT SCH (09:00)
[2019-10-08 10:25] VITALS: BP 149/98; TEMP 98.7
[2019-10-08] MEDS ORDERED: K-DUR PO STA (11:32)
--- NOTE | 2019-10-09 11:52 | CONS ---
DATE OF CONSULTATION: 10/07/2019 REASON FOR CONSULTATION: SVT HISTORY OF PRESENT ILLNESS: 44 year old white male came to the emergency room feeling nausea and felt like throwing up and the patient also had palpitations. He has history of palpitations for past several years at least 4-5 years. The palpitations have been happening more frequently lately every couple of months lasting a couple hours at times but this time the patient says that more rapid with shortness of breath with a duration of 2-3 hours. The patient was passing [facility]. He is a resident of [place]. The patient is heavy smoker and also substance use, marijuana. History of medical illnesses. The patient has history of hypertension and has been on Lisinopril/Hydrochlorothiazide and Coreg. The patient hasn't been taking Coreg for while. He ran out of most of the medications. He hasn't been seeing MD regularly. It is too expensive according to him. REVIEW OF SYSTEMS: CONSTITUTIONAL: No night sweats. Mild fatigue with weakness with palpitation. No fever or chills. HEENT: Eyes: No visual changes. No eye pain. No eye discharge. ENT: No sinus drainage. No epistaxis. No sinus pain. No sore throat. No odynophagia. No ear pain. No congestion. RESPIRATORY: No cough, no congestion. No hemoptysis. No shortness of breath. CARDIOVASCULAR: No angina symptoms. No CHF symptoms. No atypical chest pain for CAD. Palpitations off and on for past several years, more frequent lasting sometimes 1-2 hours. No orthopnea. GASTROINTESTINAL: No abdominal pain. No nausea or vomiting. No diarrhea or constipation. No hematemesis. No hematochezia. GENITOURINARY: No urgency. No frequency. No dysuria. No hematuria. No obstructive symptoms. No discharge. No pain. No significant abnormal bleeding. MUSCULOSKELETAL: No musculoskeletal pain. No joint swelling. NEUROLOGICAL: No headache. No neck pain. No syncope. No seizures. No dizziness. PSYCHIATRIC: Not anxious. No depression. No suicidal thoughts. No homicidal thoughts. SKIN: No rash. No lesions. No wounds. ENDOCRINE: No unexplained weight loss. No weight gain. HEMATOLOGIC/LYMPHATIC: No anemia. No purpura. No petechiae. No prolonged or excessive bleeding. No palpable lymph nodes. MEDICATIONS: Lisinopril/Hydrochlorothiazide 20-25mg two tablet PO daily ALLERGIES: No known allergies PHYSICAL EXAMINATION: GENERAL: The patient is oriented to time, place and person. VITAL SIGNS: Temperature 97.8, pulse 88, respiratory rate 15, blood pressure 130/78 and pulse ox 98% on room air. HEENT: Head normocephalic, atraumatic. Eyes: Extraocular muscles are intact. Pupils are equal, round and reactive to light and accommodation. Ears: No lesions. Nose appeared normal. Throat: No exudate or erythema. NECK: Supple. No JVD, no carotid bruit. No lymphadenopathy or thyromegaly. LUNGS: Clear to auscultation. Percussion note normal. Chest symmetrical. HEART: S1, S2, no S3. No murmurs. No cyanosis or clubbing. No ascites. Pulses: Dorsalis pedis and posterior tibial pulses +1 bilaterally. PMI not palpable. ABDOMEN: Soft. Nontender. Bowel sounds active. No CVA tenderness. No mass felt. EXTREMITIES: No edema. Full range of motion of all extremities, equal. NEUROLOGIC: No focal deficit. Cranial nerves II through XII are grossly intact. No headache, no double vision or headache. SKIN: Not dry. Intact. Turgor - normal. LYMPHATIC: No palpable lymph nodes/no lymphedema. MUSCULOSKELETAL: Normal joints with no swelling. Muscle tone is normal. LABS: EKG showed SVT with rate of 180 to 190 per minute. The patient was given Adenosine a total of 12mg. The patient converted to sinus rhythm. The patient had sinus rhythm with no acute changes noted at all. The patient has no evidence of WPW or PX citation syndrome type of EKG. Chest x-ray possible questionable minimal interstitial edema. Creatinine 2.5, BUN 21, potassium 2.9. ASSESSMENT: 1. Paroxysmal SVT responded to Adenosine 2. History of hypertension 3. Obesity 4. Chronic lung disease with history of smoking 5. Strong possibility of sleep apnea 6. Substance abuse 7. Noncompliance of medications and followup with primary MD RECOMMENDATIONS: 1. T4 TSh 2. Lipid profile 3. Education carried about SVT and need to take medications regularly. 4. Explained to the patient that the medication may help him. Medication dose may need to be change. Further medication maybe added and if the SVT doesn't respond to medication he may end up with ablation etc. 5. BMI 23 plus or minus two. Advised to lose weight. Diet discussed 6. Counseling for smoking done 7. Also advised to have sleep study done 8. Echocardiogram was done which showed LVH with enlarged LA cavity 4.4cm with normal LV contractility. Explained about these findings and advised to lose weight and advised to have blood pressure controlled better. 9. Continue to monitor the patient's telemetry 10. Potassium 20meq three doses today. IV Potassium was already given so K-Tab 20meq PO TID daily 11. The patient will also undergo CMP and CBC tomorrow morning. ADDENDUM: The patient very likely has chronic kidney disease because aspirin powder what he called GOODIE. Strongly advised to stop all nonsteroidal anti- inflammatory. He is going to be on IV fluids. We will see what his creatinine and BUN is tomorrow. Thanks for referral. The patient's case discussed with Dr. Boyer. Will follow. The patient is going to be taken off Hydrochlorothiazide with Lisinopril and Coreg. The patient is going to be started on Cardizem 90mg twice a day. Explained about the medications. MTDD
--- NOTE | 2019-10-09 13:44 | CONS ---
10/07/2019: Consult of new patient never seen before Level 5 10/08/2019: Extensive The patient's echocardiogram was done again with no charge on 10/08/2019 to evaluate LV function. The patient's LV functions haven't changed. The patient LV contractility is the same as which was done on 10/07/2019 and his ejection fraction is 55-60%. Pericardial effusion noted, LVH with enlarged LA cavity noted. Both echos done on 10/07/2019 and 10/08/2019 changed with normal LV ejection fraction and no wall motion abnormalities. MTDD
--- NOTE | 2019-10-09 13:44 | CONS ---
DATE OF SERVICE: 10/08/2019 CONSULT FOLLOWUP SUBJECTIVE: 44 year old white male hospitalized with SVT. The patient was given Adenosine and was converted to sinus rhythm. The patient's SVT lasted for nearly 2-3 hours by patient's history. He has a history of hypertension. He is noncompliant of lifestyle, medications and followup. He is a heavy smoker and also uses marijuana. REVIEW OF SYSTEMS: CONSTITUTIONAL: No night sweats. No fatigue, malaise, lethargy. No fever or chills. HEENT: Eyes: No visual changes. No eye pain. No eye discharge. ENT: No runny nose. No epistaxis. No sinus pain. No sore throat. No odynophagia. No ear pain. No congestion. RESPIRATORY: No cough, no congestion. No hemoptysis. CARDIOVASCULAR: No angina symptoms. No CHF symptoms. No atypical chest pain for CAD. No palpitations. No shortness of breath. GASTROINTESTINAL: No abdominal pain. No nausea or vomiting. No diarrhea or constipation. No hematemesis. No hematochezia. GENITOURINARY: No urgency. No frequency. No dysuria. No hematuria. No obstructive symptoms. No discharge. No pain. No significant abnormal bleeding. MUSCULOSKELETAL: No musculoskeletal pain. No joint swelling. No arthritis. NEUROLOGICAL: No headache. No neck pain. No syncope. No seizures. No dizziness. PSYCHIATRIC: Not anxious. No depression. No suicidal thoughts. No homicidal thoughts. SKIN: No rash. No lesions. No wounds. ENDOCRINE: No unexplained weight loss. No weight gain. HEMATOLOGIC/LYMPHATIC: No anemia. No purpura. No petechiae. No prolonged or excessive bleeding. No palpable lymph nodes. PHYSICAL EXAMINATION: GENERAL: The patient is oriented to time, place and person. VITAL SIGNS: Temperature 97.8, pulse 70, respiratory rate 18, blood pressure 158/90 and pulse ox 92%. HEENT: Head normocephalic, atraumatic. Eyes: Extraocular muscles are intact. Pupils are equal, round and reactive to light and accommodation. Ears: No lesions. Nose appeared normal. Throat: No exudate or erythema. NECK: Supple. No JVD, no carotid bruit. No lymphadenopathy or thyromegaly. LUNGS: Decreased breath sounds but clear to auscultation. Percussion note normal. Chest symmetrical. HEART: S1, S2, no S3. No murmur. No carotid bruit. No Lymphadenopathy. No thyromegaly. No cyanosis or clubbing. No ascites. Pulses: Dorsalis pedis and posterior tibial pulses +1 to +2 bilaterally. ABDOMEN: Soft. Nontender. Bowel sounds active. No CVA tenderness. No mass felt. EXTREMITIES: No edema. Full range of motion of all extremities, equal. NEUROLOGIC: No focal deficit. Cranial nerves II through XII are grossly intact. No headache, no double vision or headache. SKIN: Not dry. Intact. Turgor - normal. LYMPHATIC: No palpable lymph nodes/no lymphedema. MUSCULOSKELETAL: Normal joints with no swelling. Muscle tone is normal. LABS: Hgb 14.7, hct 44, WBC 5,700 normal differential, creatinine 0.9, BUN 14, potassium 3.47. ASSESSMENT: 1. SVT which was converted to sinus rhythm with Adenosine 12mg 2. Elevated cardiac markers with no symptoms of coronary insufficiency, no evidence of acute NV, no evidence of acute myocarditis or pericarditis. No evidence of CHF. 3. Hypertension, moderate to severe 4. Mild dyslipidemia 5. Morbid obesity 6. Smoking with chronic lung disease 7. Sleep apnea 8. Hypokalemia 9. Thrombocytopenia with history of Thrombocytopenia for several years, extensive workup RECOMMENDATIONS: 1. The patient strongly advised to stay, the patients to go home. His buddies are coming at 2pm. He wants to go back to [place]. All his medical problems discussed with him with strongly advised to be transferred which he declined. 2. The patient says that he will go against medical advise in that case the patient is strongly advised not to go back to work until he is seen by his primary care who is nurse practitioner. She is practicing in [facility] [place]. The patient doesn't remember the name of the Nurse Practitioner 3. Advised not to drive. His kelly drives 4. Take medications as prescribed 5. Counseling for smoking done. Strongly advised to quit smoking 6. Strongly advised to quit caffeine containing products or any stimulant or street drugs 7. The patient is morbidly obese, weight loss diet discussed. [facility] and it's roll discussed 8. The patient's discussed with Dr. Mcarthur. The patient is on Cardizem 90mg twice a day and needs to continue his Lisinopril but Hydrochlorothiazide should be taken 50mg half tablet every other day and needs to be Potassium supplements K-Tab 20meq twice a day until seen by the primary care. 9. The patient is strongly advised to get sleep study done ADDENDUM: The patient's EKG shows sinus rhythm. No evidence of WPW or Pre excitation syndrome. He was also explained about possibility of ablation in case the medications don't work. The patient's prognosis is guarded. The patient's echocardiogram was done again with no charge on 10/08/2019 to evaluate LV function. The patient's LV functions haven't changed. The patient LV contractility is the same as which was done on 10/07/2019 and his ejection fraction is 55-60%. Pericardial effusion noted, LVH with enlarged LA cavity noted. Both echos done on 10/07/2019 and 10/08/2019 changed with normal LV ejection fraction and no wall motion abnormalities. MTDD
--- NOTE | 2019-10-09 14:12 | CONS ---
DATE OF SERVICE: 10/07/2019 CONSULT FOLLOWUP SUBJECTIVE: 44 year old white male earlier seen in consult seen again this evening when his Troponin was reported as 7. The patient practically asymptomatic. He is up and about feeling a lot better. He denies of any chest pain. NO PND. No orthopnea. No symptoms of coronary insufficiency or CHF. His telemetry shows sinus rhythm with No ST-T wave change. EKG done this evening shows sinus rhythm with no acute changes. Specific ST-T wave changes noted. Clear abnormalities elevated Troponin level with practically no symptoms. Cause of elevation of Troponin could be renal disfunction with probably earlier ischemic damage to the myocardium with heart rate 180 per minute which lasted nearly 2-3 hours before it was converted to sinus rhythm with Acadesine. Dr. Leiva had called me discussed the case. He was concerned about the Troponin elevation. He was uncomfortable with patient being in the hospital. Concerns of [place] was discussed with patient. I explained to the patient that there is a remote possibility of early blocked artery and he may have to have angiogram performed or may have an acute event. Also discussed discussed with Dr. Vazquez that the patient had heart rate of 170-180 nearly three hours and nothing had happened in a way of acute MT or acute CHF. In fact the patient had an echocardiogram done this morning which showed normal LV contractility with LV ejection fraction of 55%. The patient declined to be transferred. Dr. Vazquez said that he will continuing to do monitoring of patient's cardiac markers throughout the evening and we will try to convince the patient to be transferred. Dr. Leiva had already called [facility] and was accepted to be admitted under observation incase the patient decides to go. The patient's cardiovascular status is stable with no evidence of CHF or coronary insufficiency at present time. The patient is already on Cardizem 90mg twice a day and being given Potassium supplements. He is on IV fluids. No evidence of CHF. TOTAL TIME SPENT: 90 minutes. JHONATHAN
--- NOTE | 2019-10-09 14:32 | ECHO2D ---
Date of Exam: 10/08/2019 Ordering Physician: DR. KHURRAM MARLEY/HOSPITALIST Room #: 115 Reason for Echo: SVT, HYPERTENSION M-Mode Normal Adult Results LV Dimensions Normal Adult Results AoV Opening excursions >1.6 >1.6 LVEDD-base- 3.5-5.8 3.1 Ao root dimensions 2.0-3.7 3.3 LVESD-base- 3.1-4.6 L. Atrium dimensions 1.9-3.8 4.6 Post. Wall thickness 0.8-1.1 1.3 IV septum (thickness) 0.7-1.2 1.3 Post. Wall excursion 0.72-1.3 NORMAL Septal motion NORMAL Systolic motion R. Ventricular cavity 1.5-2.0 NORMAL LVEF 60% 59% Paradoxical septal wall motion NORMAL 2-D : 2-D M Mode Echocardiogram was performed using apical four chamber and left parasternal long and short axis views. Mitral, tricuspid and aortic valves appear to be normal. Contractility of the left ventricle seems to be normal, so is the cavity size. ENLARGED LEFT ATRIAL CAVITY SIZE. Aortic root appears to be normal. There is no pericardial effusion. There is no thrombus noted in the left ventricle or left atrial cavity. No mitral valve prolapse noted. M-MODE: MV: NORMAL AV: NORMAL TV: NORMAL PV: CHAMBER SIZE: ENLARGED LEFT ATRIAL CAVITY WALL MOTION: NORMAL PERICARDIUM: NORMAL INTERPRETATION: 1. LEFT VENTRICULAR HYPERTROPHY WITH ENLARGED LEFT ATRIAL CAVIATY 2. NORMAL LEFT VENTRICLE SIZE AND CONTRACTILITY 3. [facility]
--- NOTE | 2019-10-09 14:39 | ECHO2D ---
Date of Exam: 10/07/2019 Ordering Physician: EDVINIST--MIKAYLA Room #: 115 Reason for Echo: SVT, HYPERTENSION M-Mode Normal Adult Results LV Dimensions Normal Adult Results AoV Opening excursions >1.6 >1.6 LVEDD-base- 3.5-5.8 5.1 Ao root dimensions 2.0-3.7 3.3 LVESD-base- 3.1-4.6 L. Atrium dimensions 1.9-3.8 4.4 Post. Wall thickness 0.8-1.1 1.3 IV septum (thickness) 0.7-1.2 1.3 Post. Wall excursion 0.72-1.3 NORMAL Septal motion NORMAL Systolic motion R. Ventricular cavity 1.5-2.0 NORMAL LVEF 60% 54% Paradoxical septal wall motion NORMAL 2-D : 2-D M Mode Echocardiogram was performed using apical four chamber and left parasternal long and short axis views. Mitral, tricuspid and aortic valves appear to be normal. Contractility of the left ventricle seems to be normal, so is the cavity size. ENLARGED LEFT ATRIAL CAVITY SIZE. Aortic root appears to be normal. There is no pericardial effusion. There is no thrombus noted in the left ventricle or left atrial cavity. No mitral valve prolapse noted. M-MODE: MV: NORMAL AV: NORMAL TV: NORMAL PV: CHAMBER SIZE: ENLARGED LEFT ATRIAL CAVITY WALL MOTION: NORMAL PERICARDIUM: NORMAL INTERPRETATION: 1. LEFT VENTRICULAR HYPERTROPHY WITH ENLARGED LEFT ATRIAL CAVITY 2. NORMAL LEFT VENTRICULAR CONTRACTILITY 3. NORMAL VALVES MTDD
--- NOTE | 2019-10-12 13:36 | DS ---
PRINCIPAL DIAGNOSIS: 10/08/2019 DISCUSSION: This is a 44 year old gentleman from [place], [place] who while in the area started developing symptoms of chest discomfort and palpitations. This has been a recurrent issue for him before. He was seen in the emergency department and was found to have supraventricular tachycardia. He was given a couple of doses of Adenosine actually admitted to observation under the hospitalist service by Dr. Boyer. For further details see Dr. Boyer History and physical. CLINICAL COURSE: He was admitted and his Troponin did elevate somewhat however the patient was no longer further asymptomatic. Dr. Roblero was consulted and an echo was performed which was unremarkable. The Troponin did eventually peak and the patient was start on Cardizem. He was found to be hypokalemic. Dr. Roblero recommended a Potassium supplementation. At time of discharge myself and Dr. Leiva had encouraged the patient to do transferred for invasive cardiac testing however the patient declined. He is aware that by not doing this he could have underlining coronary artery disease which could be undiagnosed which could result in an injury or even . However the patient declined transfer. Eventually the patient decided to the leave the hospital against medical advise. Dr. Roblero recommended the following medication change, changing his Zestoretic to Lisinopril 40mg as well as Hydrochlorothiazide 25mg. Recommended Cardizem as well as supplemental Potassium. It was recommended that he see his family physician tomorrow in [place] and consider an urgent referral to Cardiology certainly if any further symptoms go the nearest ER since he is signing out against medical advise. DIAGNOSIS: 1. SVT 2. Elevated Troponin 3. Hypertension MTDD
== END 2019-10-08 15:00 | disposition left against medical advice (07) ==
LOC: ED 09:29 → MEDSURG B 09:29
PROVIDERS: ADMIT Emergency Medicine; ATTEND Family Medicine
DX: R06.02 Shortness of breath; J44.9 Chronic obstructive pulmonary disease, unspecified; F12.90 Cannabis use, unspecified, uncomplicated; E87.6 Hypokalemia; E78.5 Hyperlipidemia, unspecified; E66.01 Morbid (severe) obesity due to excess calories; I11.9 Hypertensive heart disease without heart failure; F17.210 Nicotine dependence, cigarettes, uncomplicated; R79.89 Other specified abnormal findings of blood chemistry; R11.2 Nausea with vomiting, unspecified; Z91.19 Patient's noncompliance with other medical treatment and regimen; I47.1 Supraventricular tachycardia; G47.30 Sleep apnea, unspecified; R07.9 Chest pain, unspecified; D69.6 Thrombocytopenia, unspecified; R42 Dizziness and giddiness